=== PATIENT | male | born 1945 | race Caucasian/White ===

== ENCOUNTER → 2023-01-13 13:40 | Outpatient (BNVA) | payer MEDICARE, SELFPAY | PROVIDERS: PCP Internal Medicine; Visit Provider Nurse Practitioner Family | DX: R97.20 Elevated prostate specific antigen [PSA] (principal); N40.0 Benign prostatic hyperplasia without lower urinary tract symptoms; Z79.82 Long term (current) use of aspirin; R79.83 Abnormal findings of blood amino-acid level; Z96.0 Presence of urogenital implants | CPT/HCPCS: 51798; 99202 ==

== ENCOUNTER 2023-01-22 13:51 | Outpatient (REF) | payer MEDICARE, SELFPAY ==
--- NOTE | ~2023-01-22 | US_ITS ---
EXAMINATION: US RETROPERITONEAL LIMITED (RENAL ONLY) CLINICAL INFORMATION: Benign prostatic hyperplasia without lower urinary tract symptoms. COMPARISON: None available. TECHNIQUE: Real-time imaging of the kidneys. FINDINGS: RIGHT KIDNEY: 11.7 x 5.2 x 6.0 cm (SAG x AP x TRV). The kidney is normal in size, contour, and echogenicity. Renal cortical thickness is normal. No calculi or focal parenchymal lesions. No hydronephrosis. LEFT KIDNEY: 11.4 x 5.2 x 5.6 cm (SAG x AP x TRV). The kidney is normal in size, contour, and echogenicity. Renal cortical thickness is normal. No renal calculi or hydronephrosis. There is anechoic cyst with irregular borders measuring 1.5 x 1.1 x 1.4 cm. US/US renal BI IMPRESSION: Anechoic cyst with irregular borders lower pole left kidney.
== END 2023-01-22 13:52 | disposition home or self-care (01) ==
LOC: HO.US 13:51
PROVIDERS: PCP Pediatrics; Visit Provider Nurse Practitioner Family
DX: N40.0 Benign prostatic hyperplasia without lower urinary tract symptoms (principal)
CPT/HCPCS: 76775

== ENCOUNTER 2023-02-03 14:34 | Outpatient (REF) | payer MEDICARE, SELFPAY ==
--- NOTE | ~2023-02-03 | US_ITS ---
EXAMINATION: US PELVIS LIMITED (BLADDER) CLINICAL INFORMATION: BPH. COMPARISON: Ultrasound retroperitoneal limited (renal only) 01/22/2023. TECHNIQUE: Real-time imaging of the bladder. FINDINGS: BLADDER: Well distended and normal. Bilateral ureteral jets are demonstrated. Prevoid bladder volume is 407 mL. Postvoid bladder volume is 124 mL. The bladder wall is thickened measuring up to 5 mm in diameter. Penile implant pump is noted. ADDITIONAL FINDINGS: The prostate volume is 90 mL. US/US bladder IMPRESSION: Enlarged prostate gland with mass impression upon the urinary bladder. Large postvoid residual. Thickened urinary bladder wall..
== END 2023-02-03 14:35 | disposition home or self-care (01) ==
LOC: HO.US 14:34
PROVIDERS: PCP Pediatrics; Visit Provider Nurse Practitioner Family
DX: N40.0 Benign prostatic hyperplasia without lower urinary tract symptoms (principal)
CPT/HCPCS: 76857

== ENCOUNTER → 2023-02-07 10:32 | Outpatient (BNVA) | payer MEDICARE, SELFPAY | PROVIDERS: PCP Pediatrics; Visit Provider Nurse Practitioner Family | DX: N40.0 Benign prostatic hyperplasia without lower urinary tract symptoms (principal); R97.20 Elevated prostate specific antigen [PSA]; R35.1 Nocturia; Z96.0 Presence of urogenital implants | CPT/HCPCS: 99212 ==

== ENCOUNTER 2023-06-10 10:37 | Outpatient (AMB) | payer MEDICARE, SELFPAY ==
--- NOTE | 2023-06-10 10:39 | A.OFFVIS_ITS ---
Intake Intake Visit Reasons: 4m/PSA(set) Intake Note: Patient is present for follow up BPH/Elevated PSA/labs (PSA 5.1) Urology Medications: finasteride, tamsulosin Blood Thinner: aspirin PVR: 0ml's. Dental Hygiene Professor Required: No Accompanied by: Self / Same As Patient Allergies No Known Allergies [No Known Allergies*] Allergy (Unverified 06/10/23 11:00) Medication List - Last Reconciled 06/10/23 by MARGUERITE Lorenzo aspirin 81 mg PO DAILY atorvastatin 80 mg PO DAILY finasteride 5 mg PO DAILY 90 days lisinopril 5 mg PO DAILY metoprolol tartrate 50 mg PO DAILY multivitamin 1 tab PO DAILY HPI HPI Comments History of Present Illness Details Ever is a pleasant 78 year old male patient of . He has a past medical history of ascending aorta dilatation, cataracts, GERD, hypercholesteremia, umbilical hernia, and homocystinemia. He presents to the office today for a follow up. Of note, patient was seen approximately 4 months month ago at which time he was started on finasteride for eleavted PSA and presents to the office today for follow-up. When asked patient reports to be doing and feeling well. He reports compliance with 5 mg of finasteride daily. Recent PSA results reviewed with the patient today. PSAs are as follows: 02/16--9.7. 06/18--5.1 PSA% free 33 Patient with previous TURP in the past with Dr. Addison. He also discusses previous surgical procedure for penile prosthesis. He also mentions having a prostate biopsy many years ago for an elevated PSA and biopsy was negative. When asked he does report nocturia up to 2-4 times per night however denies urinary urgency, urinary frequency, incontinence, hematuria, dysuria, foul smelling urine, changes to urinary stream, flank pain, fever, and or chills. He does not find nocturia bothersome at this time. He otherwise offers no issues or concerns at this time. In office urinalysis results reviewed with the patient today. PVR 0 mL. [facility] Medical History Ascending aorta dilatation Cataract Colon cancer screening Coronary artery disease Elevated LFTs Elevated prostate specific antigen [PSA] GERD (gastroesophageal reflux disease) Homocysteinemia Hypercholesteremia Umbilical hernia Surgical History History of implantation of penile prosthesis S/P TURP Review of Systems Const All systems reviewed & are unremarkable except as noted in HPI and below Reports as per HPI Eyes Reports no additional complaints ENT Reports no additional complaints Card Reports as per HPI Resp Reports no additional complaints GI Reports as per HPI Reports as per HPI Musc Reports no additional complaints Neuro Reports no additional complaints Psych Reports no additional complaints Endo Reports no additional complaints Dillon/Lymph Reports no additional complaints Physical Exam Const General: cooperative, comfortable, no acute distress, well developed, alert and awake Orientation/consciousness: patient oriented x3 HEENT Head: Yes normal to inspection, Yes normocephalic and Yes atraumatic Ears: hearing grossly normal bilaterally Eyes General: appearance normal, both eyes and all related structures Neck Neck: Yes normal visual inspection and Yes trachea midline Chest Chest palpation & inspection: normal inspection of the chest Resp Effort & Inspection: normal respiratory effort and able to speak in complete sentences Cardio Rate: regular rate GI Inspection: Yes normal to inspection General: Yes no CVA tenderness Back/Spine/Pelvis Back: no CVA tenderness Skin General skin exam: no rashes or lesions noted Neuro General: patient oriented x3 Extrem General: Yes normal to inspection Psych Appearance: grossly normal and well kempt Mental Status: mental status grossly normal Speech and movement: Normal speech and movement present and Clear speech present Affect: normal affect Attitude: cooperative Thought process: Normal thought process present Thought content: Normal thought content present Insight: Fair insight present (Psych) Judgement: Fair judgement present (Psych) Office Procedures Post Void Residual Post Residual Void Post Void Residual (PVR): 0 [id number]-[id number] Void Residual by ultrasound Results AMB Urinalysis, Automated UA Leukoctes 0 Reina/uL Last Edit by Pedrito Franco on 06/10/23 10:54 UA Nitrite Last Edit by Pedrito Franco on 06/10/23 10:54 UA Urobilinogen 0.2 mg/dL Last Edit by Pedrito Franco on 06/10/23 10:54 UA Protein 0 mg/dL Last Edit by Pedrito Franco on 06/10/23 10:54 UA pH 6.5 Last Edit by Pedrito Franco on 06/10/23 10:54 UA Blood 0 Ponce/uL Last Edit by Pedrito rFanco on 06/10/23 10:54 UA Specific [place] 1.015 Last Edit by Pedrito Franco on 06/10/23 10:54 UA Ketone Negative Last Edit by Pedrito Franco on 06/10/23 10:54 UA Bilirubin 0 mg/dL Last Edit by Pedrito Franco on 06/10/23 10:54 UA Glucose 0 mg/dL Last Edit by Pedrito Franco on 06/10/23 10:54 Results Reviewed Results Reviewed: Laboratory Last Values Urine pH (Auto) 6.5 06/10/23 10:44 Specific [place] (Auto) 1.015 06/10/23 10:44 Urine Protein (Auto) 0 mg/dL 06/10/23 10:44 Glucose (UA)(Auto) 0 mg/dL 06/10/23 10:44 Urine Ketones (Auto) Negative 06/10/23 10:44 Urine Blood (Auto) 0 Ponce/uL 06/10/23 10:44 Urine Bilirubin (Auto) 0 mg/dL 06/10/23 10:44 Urine Urobilinogen (Auto) 0.2 mg/dL 06/10/23 10:44 Leukocyte Esterase (Auto) 0 Reina/uL 06/10/23 10:44 Assessment & Plan Assessment & Plan (1) Elevated PSA: Code(s): R97.20 - Elevated prostate specific antigen [PSA] (2) Nocturia: Code(s): R35.1 - Nocturia (3) Renal cyst: Code(s): N28.1 - Cyst of kidney, acquired (4) Enlarged prostate: Code(s): N40.0 - Benign prostatic hyperplasia without lower urinary tract symptoms Plan In office urinalysis results reviewed with the patient today; as noted above. PVR 0 mL. Recent PSA results reviewed with the patient today; as noted above; PSA trending down Discussed at length continuation of finasteride versus prostate biopsy; discussed risks and benefits of both continuation of finasteride versus prostate biopsy. Continue finasteride 5 mg daily as discussed and prescribed. Patient denies any bothersome urinary issues or concerns at this time. PSA in 4 months. Follow-up in 4 months with PSA to be completed prior; or sooner with any issues, concerns, and or questions. Orders: Orders Prostate Specific Antigen 6 Months R97.20 - Elevated prostate specific antigen [PSA] AMB Urinalysis Automated Today R35.1 - Nocturia, Z13.9 - Encounter for screening, unspecified AMB Post Void Residual by ultrasound Today R35.1 - Nocturia Patient Instructions: The patient had an opportunity to ask questions regarding the treatment plan. All questions were answered. Physical exam, labs, and imaging were discussed and reviewed in detail. As well as risks, benefits, and discussion of treatment choices. No major barriers to understanding were identified. The patient expressed understanding and agreement with the above treatment plan. The patient was made aware they should contact our office by phone for worsening of their current condition, the appearance of new symptoms, or with any questions or concerns. Compliance is encouraged with any medications and follow up testing that is ordered. It is a privilege to be allowed the opportunity to participate in? your urological care.? Again, if you have any questions or con cerns If you have any questions or concerns please do not hesitate to contact me. The office is [phone]. This note is constructed using voice recognition software. While every effort has been made to ensure accuracy shearing supervisor errors may have been included. Yours sincerely, MARGUERITE Lorenzo Coding Level of Care Code Est Pt Level 3 (55262) Diagnoses Elevated PSA R97.20 Nocturia R35.1 Renal cyst N28.1 Enlarged prostate N40.0 CPT Codes Post Residual Void - PVR CPT Code: 18301-Uicf Void Residual by ultrasound ([id number])
== END 2023-06-10 10:59 | disposition home or self-care (01) ==
PROVIDERS: Visit Provider Nurse Practitioner Family
DX: R97.20 Elevated prostate specific antigen [PSA] (principal); R35.1 Nocturia; N28.1 Cyst of kidney, acquired; N40.0 Benign prostatic hyperplasia without lower urinary tract symptoms
CPT/HCPCS: 99213

== ENCOUNTER → 2023-06-10 10:37 | Outpatient (BNVA) | payer MEDICARE, SELFPAY | PROVIDERS: Visit Provider Nurse Practitioner Family | DX: R97.20 Elevated prostate specific antigen [PSA] (principal); N40.1 Benign prostatic hyperplasia with lower urinary tract symptoms; R35.1 Nocturia; N28.1 Cyst of kidney, acquired; Z79.899 Other long term (current) drug therapy | CPT/HCPCS: 51798; 99212 ==

== ENCOUNTER 2023-09-30 09:51 | Outpatient (REF) | payer MEDICARE, SELFPAY ==
[2023-10-06 21:33] LABS: Free Prostate Spec Ag 1.2 ng/mL; Percent Free Prostate Spec Ag 24 % (calc) (>25)
== END 2023-09-30 09:52 | disposition home or self-care (01) ==
LOC: HO.LAB 09:51
PROVIDERS: Visit Provider Nurse Practitioner Family
DX: N40.0 Benign prostatic hyperplasia without lower urinary tract symptoms (principal); R97.20 Elevated prostate specific antigen [PSA]; Z12.5 Encounter for screening for malignant neoplasm of prostate
CPT/HCPCS: 36415; 84153; 84154

== ENCOUNTER 2023-10-08 13:28 | Outpatient (AMB) | payer MEDICARE, SELFPAY ==
--- NOTE | 2023-10-08 13:34 | MHC.OFFVIS ---
Intake Intake Visit Reasons: PVR/PSA(pending) Intake Note: Patient is Present for Follow Up PSA/PVR Urology Medication: Finasteride, Antibiotic Allergies: None Blood Thinners: Aspirin PVR: 0 Allergies No Known Allergies [No Known Allergies*] Allergy (Verified 10/08/23 13:39) Medication List - Last Reconciled 10/08/23 by Benjamin Barraza MD aspirin 81 mg PO DAILY atorvastatin 80 mg PO DAILY finasteride 5 mg PO DAILY 90 days lisinopril 5 mg PO DAILY metoprolol tartrate 50 mg PO DAILY multivitamin 1 tab PO DAILY HPI HPI Comments History of Present Illness Details Ever is a pleasant male. He is a patient of Dr. Sauceda. He seen for the following urologic conditions - lower urinary tract symptoms with elevated PSA Responding well to finasteride PSA over past 8 months dropped from 9.7-5.0 Review in 6 months Lower urinary tract symptoms with elevated PSA Current therapy finasteride PVR 0 Minimal symptoms PSA 02/16--9.7, 06/18--5.1 PSA% free 33, 10/18 5.0 F 24% PFSH Medical History Homocysteinemia Cataract Elevated prostate specific antigen [PSA] Umbilical hernia Hypercholesteremia GERD (gastroesophageal reflux disease) Coronary artery disease Elevated LFTs Colon cancer screening Ascending aorta dilatation Surgical History S/P TURP History of implantation of penile prosthesis Review of Systems Const Denies chills and Denies fever(s) Card Reports no additional complaints and Denies syncope Resp Denies cough GI Denies abdominal pain and Denies heartburn Reports as per HPI and Denies change in libido Neuro Denies syncope Psych Denies change in libido Endo Denies change in libido Physical Exam Const General: cooperative, healthy appearing, comfortable and no acute distress Orientation/consciousness: patient oriented x3 HEENT Face and sinus: Yes normal facial exam Mouth: moist mucous membranes Neck Neck: Yes normal visual inspection, Yes full ROM and Yes trachea midline Chest Chest palpation & inspection: normal inspection of the chest Resp Effort & Inspection: normal respiratory effort, able to speak in complete sentences and no respiratory distress GI Inspection: Yes normal to inspection Back/Spine/Pelvis Cervical Spine: normal cervical lordosis Thoracic/Lumbar Spine: thoracic and lumbar spine normal to inspection Skin General skin exam: no rashes or lesions noted Neuro General: patient oriented x3, gait normal, tone normal and moves all extremities Extrem General: Yes normal to inspection and Yes capillary refill normal Office Procedures Post Void Residual Post Residual Void Post Void Residual (PVR): 0 [id number]-[id number] Void Residual by ultrasound Results AMB Urinalysis, Automated UA Leukoctes 0 Reina/uL Last Edit by Zabrina Celis [facility] on 10/08/23 13:46 UA Nitrite Negative Last Edit by Zabrina Celis [facility] on 10/08/23 13:46 UA Urobilinogen 0.2 mg/dL Last Edit by Zabrina Celis [facility] on 10/08/23 13:46 UA Protein 15 mg/dL Last Edit by Zabrina Celis [facility] on 10/08/23 13:46 UA pH 6.0 Last Edit by Zabrina Celis [facility] on 10/08/23 13:46 UA Blood 10 Ponce/uL Last Edit by Zabrina Celis [facility] on 10/08/23 13:46 UA Specific [place] 1.020 Last Edit by Zabrina Celis [facility] on 10/08/23 13:46 UA Ketone Negative Last Edit by Zabrina Celis [facility] on 10/08/23 13:46 UA Bilirubin 0 mg/dL Last Edit by Zabrina Celis [facility] on 10/08/23 13:46 UA Glucose 0 mg/dL Last Edit by Zabrina Celis [facility] on 10/08/23 13:46 Results Reviewed Results Reviewed: Laboratory Last Values Urine pH (Auto) 6.0 10/08/23 13:40 Specific [place] (Auto) 1.020 10/08/23 13:40 Urine Protein (Auto) 15 mg/dL 10/08/23 13:40 Glucose (UA)(Auto) 0 mg/dL 10/08/23 13:40 Urine Ketones (Auto) Negative 10/08/23 13:40 Urine Blood (Auto) 10 Ponce/uL 10/08/23 13:40 Urine Nitrite (Auto) Negative 10/08/23 13:40 Urine Bilirubin (Auto) 0 mg/dL 10/08/23 13:40 Urine Urobilinogen (Auto) 0.2 mg/dL 10/08/23 13:40 Leukocyte Esterase (Auto) 0 Reina/uL 10/08/23 13:40 Assessment & Plan Assessment & Plan (1) BPH (benign prostatic hyperplasia): Code(s): N40.0 - Benign prostatic hyperplasia without lower urinary tract symptoms (2) Enlarged prostate: Code(s): N40.0 - Benign prostatic hyperplasia without lower urinary tract symptoms (3) Elevated PSA: Code(s): R97.20 - Elevated prostate specific antigen [PSA] Plan Six month follow-up PSA Orders: Orders AMB Urinalysis Automated Today Z13.9 - Encounter for screening, unspecified AMB Post Void Residual by ultrasound Today N40.0 - Benign prostatic hyperplasia without lower urinary tract symptoms PSA,Total (Free>4and<10) 6 Months R97.20 - Elevated prostate specific antigen [PSA] Patient Instructions: Imaging studies, laboratory and physical exam results were discussed and reviewed in detail. No major barriers to patient understanding were identified. An opportunity to ask questions regarding the treatment plan was provided. All questions were answered. The patient expressed understanding and agreement with the above treatment plan. The patient is aware they should contact our office by phone for worsening of their current condition or the appearance of new urologic symptoms. Compliance is encouraged with any medications and followup testing that is ordered. It is a privilege to participate in the urologic care of your patient. If you have any questions or concerns regarding treatment for the above conditions, or other urologic issues, please do not hesitate to contact me. The office telephone contact is [phone]. This note is constructed using voice recognition software. While every effort has been made to ensure accuracy oracle soa architect errors may have been included. Yours sincerely, Dr Benjamin Barraza MD, [facility] - Urology Providers of Expert, Compassionate Care for the Genitourinary System Coding Level of Care Code Est Pt Level 3 (97852) Diagnoses BPH (benign prostatic hyperplasia) N40.0 Enlarged prostate N40.0 Elevated PSA R97.20 CPT Codes Post Residual Void - PVR CPT Code: 67291-Hkgu Void Residual by ultrasound ([id number])
== END 2023-10-08 14:08 | disposition home or self-care (01) ==
PROVIDERS: PCP Pediatrics; Visit Provider Urology
DX: N40.0 Benign prostatic hyperplasia without lower urinary tract symptoms (principal); R97.20 Elevated prostate specific antigen [PSA]; Z13.9 Encounter for screening, unspecified
CPT/HCPCS: 99213

== ENCOUNTER → 2023-10-08 13:28 | Outpatient (BNVA) | payer MEDICARE, SELFPAY | PROVIDERS: PCP Pediatrics; Visit Provider Urology | DX: N40.0 Benign prostatic hyperplasia without lower urinary tract symptoms (principal); R97.20 Elevated prostate specific antigen [PSA] | CPT/HCPCS: 51798; 81003; 99212 ==

== ENCOUNTER 2024-04-02 10:55 | Outpatient (REF) | payer MEDICARE, SELFPAY ==
[2024-04-02 12:57] LABS: Prostate Specific Antigen 3.42 ng/mL (<0.05-4.0)
[2024-04-02 13:00] LABS: PSA,Total (Free>4and<10) 3.23 ng/mL (0.00-4.00)
== END 2024-04-02 10:56 | disposition home or self-care (01) ==
LOC: HO.LAB 10:55
PROVIDERS: Absent Provider Nurse Practitioner Family; PCP Pediatrics; Visit Provider Urology
DX: R97.20 Elevated prostate specific antigen [PSA] (principal); Z12.5 Encounter for screening for malignant neoplasm of prostate
CPT/HCPCS: 36415; 84153

== ENCOUNTER 2024-04-09 13:33 | Outpatient (AMB) | payer MEDICARE, SELFPAY ==
--- NOTE | 2024-04-09 13:55 | MHC.OFFVIS ---
Intake Visit Reasons: 6M PSA(set) Intake Note: Patient is Present for Follow Up PSA Urology Medication: Finasteride Antibiotic Allergies: None Blood Thinners: Aspirin Allergies No Known Allergies [No Known Allergies*] Allergy (Verified 04/09/24 13:57) Medication List - Last Reconciled 04/09/24 by Benjamin Barraza MD aspirin 81 mg PO DAILY atorvastatin 80 mg PO DAILY finasteride 5 mg PO DAILY 90 days lisinopril 5 mg PO DAILY metoprolol tartrate 50 mg PO DAILY multivitamin 1 tab PO DAILY HPI Comments Details: Ever is a pleasant male. He is a patient of Dr. Sauceda. He seen for the following urologic conditions - lower urinary tract symptoms with elevated PSA PSA continued to fall. 3.4 Nocturia x1 Happy with current voiding performance Twelve month follow-up PSA finasteride Lower urinary tract symptoms with elevated PSA Current therapy finasteride PVR 0 Minimal symptoms PSA 02/16--9.7, 06/18--5.1 PSA% free 33, 10/18 5.0 F 24%, 04/19 3.4 PFSH Medical History Homocysteinemia Cataract Elevated prostate specific antigen [PSA] Umbilical hernia Hypercholesteremia GERD (gastroesophageal reflux disease) Coronary artery disease Elevated LFTs Colon cancer screening Ascending aorta dilatation Surgical History S/P TURP History of implantation of penile prosthesis Review of Systems Const Denies chills and Denies fever(s) Card Reports no additional complaints and Denies syncope Resp Denies cough GI Denies abdominal pain and Denies heartburn Reports as per HPI and Denies change in libido Neuro Denies syncope Psych Denies change in libido Endo Denies change in libido Physical Exam Const General: cooperative, healthy appearing, comfortable and no acute distress Orientation/consciousness: patient oriented x3 HEENT Face and sinus: Yes normal facial exam Mouth: moist mucous membranes Neck Neck: Yes normal visual inspection, Yes full ROM and Yes trachea midline Chest Chest palpation & inspection: normal inspection of the chest Resp Effort & Inspection: normal respiratory effort, able to speak in complete sentences and no respiratory distress GI Inspection: Yes normal to inspection Back/Spine/Pelvis Cervical Spine: normal cervical lordosis Thoracic/Lumbar Spine: thoracic and lumbar spine normal to inspection Skin General skin exam: no rashes or lesions noted Neuro General: patient oriented x3, gait normal, tone normal and moves all extremities Extrem General: Yes normal to inspection and Yes capillary refill normal Assessment & Plan Assessment & Plan (1) Nocturia: Code(s): R35.1 - Nocturia Category: Medical (2) BPH (benign prostatic hyperplasia): Code(s): N40.0 - Benign prostatic hyperplasia without lower urinary tract symptoms Category: Medical Plan Twelve month follow-up PSA Patient Instructions: Imaging studies, laboratory and physical exam results were discussed and reviewed in detail. No major barriers to patient understanding were identified. An opportunity to ask questions regarding the treatment plan was provided. All questions were answered. The patient expressed understanding and agreement with the above treatment plan. The patient is aware they should contact our office by phone for worsening of their current condition or the appearance of new urologic symptoms. Compliance is encouraged with any medications and followup testing that is ordered. It is a privilege to participate in the urologic care of your patient. If you have any questions or concerns regarding treatment for the above conditions, or other urologic issues, please do not hesitate to contact me. The office telephone contact is [phone]. This note is constructed using voice recognition software. While every effort has been made to ensure accuracy salesperson art objects errors may have been included. Yours sincerely, Dr Benjamin Barraza MD, [facility] - Urology Providers of Expert, Compassionate Care for the Genitourinary System Coding Level of Care Code Est Pt Level 3 (52427) Diagnoses Nocturia R35.1 BPH (benign prostatic hyperplasia) N40.0
== END 2024-04-09 14:09 | disposition home or self-care (01) ==
PROVIDERS: PCP Pediatrics; Visit Provider Urology
DX: R35.1 Nocturia (principal); N40.0 Benign prostatic hyperplasia without lower urinary tract symptoms
CPT/HCPCS: 99213

== ENCOUNTER → 2024-04-09 13:33 | Outpatient (BNVA) | payer MEDICARE, SELFPAY | PROVIDERS: PCP Pediatrics; Visit Provider Urology | DX: N40.1 Benign prostatic hyperplasia with lower urinary tract symptoms (principal); R35.1 Nocturia | CPT/HCPCS: 99212 ==

== ENCOUNTER 2024-11-16 14:35 | Outpatient (AMB) | payer MEDICARE, SELFPAY ==
--- NOTE | 2024-11-16 14:36 | A.OFFVIS_ITS ---
Intake Visit Reasons: 1Y PVR/PSA(set) Intake Note: Patient is Present for 1Y Follow Up PVR/PSA Urology Medication: Finasteride Antibiotic Allergies: None Blood Thinners: Aspirin TODAY'S PVR:13ML'S Transmission Systems Operator Required: No Allergies No Known Allergies [No Known Allergies*] Allergy (Verified 11/16/24 14:37) HPI Comments Details: Ever is a pleasant male. He is a patient of Dr. Sauceda. He seen for the following urologic conditions - lower urinary tract symptoms with elevated PSA PSA remains at 2.9 Fallen appropriately with finasteride May give medication Friday, Friday, Friday Lower urinary tract symptoms with elevated PSA Current therapy finasteride PVR 0 Minimal symptoms PSA 02/16--9.7, 06/18--5.1 PSA% free 33, 10/18 5.0 F 24%, 04/19 3.4, 11/20 2.9 PFSH Medical History Homocysteinemia Cataract Elevated prostate specific antigen [PSA] Umbilical hernia Hypercholesteremia GERD (gastroesophageal reflux disease) Coronary artery disease Elevated LFTs Colon cancer screening Ascending aorta dilatation Surgical History S/P TURP History of implantation of penile prosthesis Office Procedures Post Void Residual Post Residual Void Post Void Residual (PVR): 13 [id number] Void Residual by ultrasound Results AMB Urinalysis, Automated UA Leukoctes 0 Reina/uL Last Edit by GRANT Lynn on 11/16/24 14:54 UA Nitrite Negative Last Edit by GRANT Lynn on 11/16/24 14:54 UA Urobilinogen 0.2 mg/dL Last Edit by GRANT Lynn on 11/16/24 14:5 4 UA Protein 15 mg/dL Last Edit by GRANT Lynn on 11/16/24 14:54 UA pH 6.0 Last Edit by GRANT Lynn on 11/16/24 14:54 UA Blood 0 Ponce/uL Last Edit by GRANT Lynn on 11/16/24 14:54 UA Specific [place] 1.010 Last Edit by GRANT Lynn on 11/16/24 14: 54 UA Ketone Negative Last Edit by GRANT Lynn on 11/16/24 14:54 UA Bilirubin 0 mg/dL Last Edit by GRANT Lynn on 11/16/24 14:54 UA Glucose 0 mg/dL Last Edit by GRANT Lynn on 11/16/24 14:54 Results Reviewed Results Reviewed: Laboratory Last Values Urine pH (Auto) 6.0 11/16/24 14:53 Specific [place] (Auto) 1.010 11/16/24 14:53 Urine Protein (Auto) 15 mg/dL 11/16/24 14:53 Glucose (UA)(Auto) 0 mg/dL 11/16/24 14:53 Urine Ketones (Auto) Negative 11/16/24 14:53 Urine Blood (Auto) 0 Ponce/uL 11/16/24 14:53 Urine Nitrite (Auto) Negative 11/16/24 14:53 Urine Bilirubin (Auto) 0 mg/dL 11/16/24 14:53 Urine Urobilinogen (Auto) 0.2 mg/dL 11/16/24 14:53 Leukocyte Esterase (Auto) 0 Reina/uL 11/16/24 14:53 Assessment & Plan Assessment & Plan Orders: Orders AMB Urinalysis Automated Today Z13.9 - Encounter for screening, unspecified Coding CPT Codes Post Residual Void - PVR CPT Code: 36117-Zhzd Void Residual by ultrasound ([id number])
== END 2024-11-16 15:12 | disposition home or self-care (01) ==
PROVIDERS: PCP Pediatrics; Visit Provider Urology
DX: Z13.9 Encounter for screening, unspecified (principal)

== ENCOUNTER → 2024-11-16 14:35 | Outpatient (BNVA) | payer MEDICARE, SELFPAY | PROVIDERS: PCP Pediatrics; Visit Provider Urology | DX: N40.0 Benign prostatic hyperplasia without lower urinary tract symptoms (principal); R97.20 Elevated prostate specific antigen [PSA] | CPT/HCPCS: 51798; 81003; 99212 ==